=== PATIENT | female | born 1945 | race Caucasian/White ===

== ENCOUNTER 2020-05-05 08:56 | Outpatient (CLI) | payer MEDICARE, OTHER, SELFPAY ==
--- NOTE | 2020-05-05 09:05 | MM_ITS ---
WS: [id number] BILATERAL DIGITAL SCREENING MAMMOGRAPHY WITH CAD CLINICAL INFORMATION: SCREENING HISTORY: Screening mammogram. No current complaints. COMPARISON: April 09, 2019 TECHNIQUE: Bilateral CC and MLO views. FINDINGS: Scattered fibroglandular densities bilaterally. No suspicious focal mass, asymmetry, calcifications, or architectural distortion. No evidence of malignancy. Lucent centered and punctate calcifications. Secretory calcifications. Vascular calcification. MM/[id number] IMPRESSION: BI-RADS: 2-Benign FOLLOW UP: 1 Year Follow-up Recommend return to annual screening mammography.
== END 2020-05-05 08:57 | disposition home or self-care (01) ==
LOC: RADSHAW 09:03
PROVIDERS: PCP Family Medicine; Visit Provider Family Medicine
DX: Z12.31 Encounter for screening mammogram for malignant neoplasm of breast (principal)
CPT/HCPCS: 77067

== ENCOUNTER 2020-10-14 11:35 | Emergency (ER) | payer MEDICARE, OTHER, SELFPAY ==
[2020-10-14 11:40] VITALS: BP 154/76; PULSE 59; RESP 16; TEMP 36.8; O2SAT 96; BMI 27.4
--- NOTE | 2020-10-14 12:22 | ED_ITS ---
HPI - General Adult General: Chief complaint: General Medical Stated complaint: EAR PAIN Time Seen by Provider: 10/14/20 11:40 Source: patient Mode of arrival: ambulatory Limitations: no limitations History of Present Illness: HPI narrative: This patient is a 75-year-old female who presents with a sensation of her right ear plugged up as well as reduced hearing in that ear. She has had a history of cerumen impaction in the past. She has tried different lohl-gna-ajsbofl remedies but with no improvement so she is here for evaluation. Onset (ago): day(s) (2) Associated symptoms: Deny dyspnea, headache(s), nausea, rash, palpitations or vomiting Review of Systems General: Reports: 10 or more systems reviewed and unremarkable except in HPI and below Const: Denies: fever(s), chills or body aches Eyes: Denies: change in vision or blurry vision ENMT: Reports: change in hearing; Denies: throat pain, enlarged tonsils, odynophagia, hoarseness, mouth pain, swelling of lips/tongue, ear or mastoid pain or ear discharge Card: Denies: palpitations, irregular heart rhythm, edema or swelling of feet/ankles Resp: Denies: dyspnea, productive cough or non-productive cough GI: Denies: abdominal pain, nausea or vomiting : Denies: flank pain, difficulty voiding, dysuria, urinary frequency, urinary urgency or urinary hesitancy Musc: Denies: neck pain, back pain or extremity swelling Skin/Breast: Denies: rash, pruritus or erythema Neuro: Denies: headache(s), numbness in extremities or weakness in extremities Endo: Denies: polyuria, polydipsia or tired all the time Physical Exam Const: COMMON NORMALS: no acute distress, average body habitus and patient oriented x3 HENMT: COMMON NORMALS: normocephalic and atraumatic HEAD & SCALP: normocephalic and atraumatic EXTERNAL AUDITORY CANAL: Abnormal EAC present EAC laterality: right Details: cerumen impaction TYMPANIC MEMBRANE: TM normal on the left and TM abnormal TM laterality: right Details: obstructed by cerumen Resp: COMMON NORMALS: normal respiratory effort, No use of accessory muscles and clear to auscultation bilaterally AUSCULTATION: clear to auscultation bilaterally Cardio: COMMON NORMALS: regular rate, regular rhythm, S1 normal heart sound present, S2 normal heart sound present and No murmurs present (Cardio) RATE: regular rate RHYTHM: regular rhythm HEART SOUNDS: S1 normal heart sound present and S2 normal heart sound present Extremity: COMMON NORMALS: normal to inspection, full ROM and no pedal edema Neuro: COMMON NORMALS: patient oriented x3 Procedures Ear Wax Removal Right Ear: Cerumenolytic Used: other (warm tap water) Results: Re-examined: cerumen removed completely TM Examination: TM(s) intact, normal appearance Ear Canal Exam: atraumatic Patient Tolerated Procedure: well Complications: no problems Technique: ear canal irrigated Course Vital Signs: Vital signs: Vital Signs Temperature 98.2 F 10/14/20 11:40 Pulse Rate 59 L 10/14/20 11:40 Respiratory Rate 16 10/14/20 11:40 Blood Pressure 154/76 10/14/20 11:40 Pulse Oximetry 96 10/14/20 11:40 MDM - General Adult MDM Narrative: Medical decision making narrative: 75-year-old female with impacted cerumen in her right ear causing reduced hearing. Cerumen successfully removed via irrigation. She felt much improved after and had significantly improved hearing subjectively and she is discharged home. Discharge Plan Discharge Patient Disposition: Home Clinical Impression: Impacted cerumen, right ear Condition: Stable Discharge Orders: Discharge ED (Routine); Ordered 10/14/20 Ordered By: Dariusz Omer Referrals: Leonid Esparza MD [Primary Care Provider] - 1-3 days Discharge Diet: Usual diet Discharge Activity: Resume usual activity Patient Instructions: Cerumen Impaction (ED) Activity Restrictions/Additional Instructions: Return for any new or worsening symptoms. Follow-up with your primary care provider as needed. Continue home medications. Coding Level of Care Code ED Observer [employer] for Alexa Batres
== END 2020-10-14 12:28 | disposition home or self-care (01) ==
PROVIDERS: Emergency Provider Family Medicine; PCP Family Medicine
DX: H61.21 Impacted cerumen, right ear (principal)
CPT/HCPCS: 12345; 99281

== ENCOUNTER 2020-11-28 09:44 | Outpatient (CLI) | payer MEDICARE, OTHER, SELFPAY ==
[2020-11-28 11:17] LABS: Basophils # 0.1 10^3/uL (0.0-0.1); Basophils % 0.8 %; Eosinophils # 0.4 10^3/uL (0.0-0.8); Eosinophils % 3.7 %; Hematocrit 45.1 % (37.0-47.0); Hemoglobin 14.3 g/dL (11.5-15.3); Lymphocytes # 3.6 10^3/uL (0.8-4.8); Lymphocytes % 32.3 %; Mean Corpuscular HGB Conc 31.7 g/dL (30.0-36.0); Mean Corpuscular Hemoglobin 30.6 pg (28.0-34.0); Mean Corpuscular Volume 96.6 fL (81-99); Mean Platelet Volume 10.7 fL (7.4-10.4); Monocytes % 8.8 %; Neutrophils # 5.96 10^3/uL (1.8-7.7); Neutrophils % 53.5 %; Nucleated Red Blood Cells % 0 %; Platelet Count 383 10^3/cmm (130-400); Red Blood Count 4.67 10^6/uL (4.1-5.3); Red Cell Distribution Width 12.9 % (12.1-15.1); White Blood Count 11.1 10^3/uL (4.0-10.0)
[2020-11-28 11:33] LABS: Alanine Aminotransferase 34 U/L (0-33); Albumin Level 4.3 g/dL (3.5-5.2); Alkaline Phosphatase 77 IU/L (35-105); Anion Gap 13.5 (5-19); Aspartate Amino Transferase 22 U/L (0-32); Blood Urea Nitrogen 17 mg/dL (8-23); Calcium 9.5 mg/dL (8.5-10.5); Carbon Dioxide 28 mmol/L (22-29); Chloride 101 mmol/L (98-107); Globulin 2.8 g/dL (1.3-4.6); Glucose 87 mg/dL (65-115); Lactate Dehydrogenase 189 U/L (135-214); Osmolality Calculated 287 mOsm/kg (285-295); Potassium 4.5 mmol/L (3.5-5.1); Sodium 138 mmol/L (136-145); Total Bilirubin 0.3 mg/dL (0.15-1.2); Total Protein 7.1 g/dL (6.6-8.7)
[2020-11-28 12:38] LABS: Erythrocyte Sedimentation Rate 11 mm/hr (0-15)
--- NOTE | 2020-11-28 17:16 | ONC CON_ITS ---
Dr. Ayan George Patient Note Patient: Daniela Barragan Unit #: [id number]: [id number] Dicatated By: Mich Botello M.D.Date of Visit: Nov 28, 2020 Onc MED New Patient/Consult Referring Physician: Dr. Leonid Esparza M.D. Chief Complaint: Systemic mastocytosis. History of Present Illness: She has known history of systemic mastocytosis, initially diagnosed in 2007. She had presented with flushing episodes and she was found to have an elevated serum tryptase level. The diagnosis reportedly had been made by bone marrow biopsy. I had initially seen her in March 2009. Her repeat bone marrow aspiration/biopsy done here on 06/01/2009 showed normal cellularity with no evidence of an infiltrative process and with no significant increase in CD25 or CD117 positive cells by flow cytometry. The chromosome analysis also was normal. Her evaluation, though, did not include FISH or PCR studies. She did have normal 24-hour urine prostaglandin E2 excretion. She had subsequently continued symptomatic management under the direction of an thermite welder in [place]. She returns now for a follow-up visit. She has been feeling pretty good generally. She still has flushing episodes off and on all day, and she does have sweating associated with it. She has not had fever. Her energy has been pretty good. She has normal activity. Appetite also has been good, and her weight has been stable. She has no shortness of breath, cough, or chest pain. She has no GI or complaints. She has a little bit of arthritis in her hands. She also has some chronic back pain. She takes tramadol at bedtime as needed. She has a history of migraine headaches, though seem to have resolved. She does not complain of dizziness. She has a little bit of numbness/tingling in the anterior right thigh area. It is intermittent. She has no other focal neurologic symptoms. Past Medical History: Her medical history includes degenerative arthritis, gastroesophageal reflux disease, hyperlipidemia, hypertension, hypothyroidism, mastocytosis, and migraine headaches. She has a history of melanoma excision. Past Surgical History: Her surgical/procedural history includes cholecystectomy, hysterectomy with bilateral salpingo-oophorectomy, tonsillectomy, and excision of melanoma skin cancer in 2019. Medications: Aspirin 1 (81 mg) Tablet Oral daily, Cetirizine HCl 1 (10 mg) Tablet Oral daily, Cholecalciferol 1.5 (50 mcg ) Capsule Oral daily, Diclofenac Sodium 1 (50 mg) Tablet, enteric coated Oral b.i.d., Iron 1 (325 (65 fe) mg) Tablet Oral daily, Levothyroxine Sodium 1 (150 mcg) Tablet Oral every am, Meclizine HCl 1 (25 mg) Tablet Oral daily PRN, Metoprolol Tartrate 1 (25 mg) Tablet Oral b.i.d., Multiple Vitamin 1 Tablet Oral daily, Naproxen 1 (500 mg) Tablet Oral t.i.d., Omeprazole 1 (20 mg) Capsule Delayed Release Oral daily, Simvastatin 1 (20 mg) Tablet Oral daily, Singulair 1 (10 mg) Tablet Oral daily, traMADol HCl 1 (50 mg) Tablet Oral four times a day Allergies: Penicillins, Tetracycline HCl, and Zithromax. Social History: Ms. Barragan is . She is a non-smoker. She does not drink alcohol. Family History: Father of heart disease at age 65. Mother in a motor vehicle accident at age 62. A brother and a sister are in good health. Review Of Symptoms: Constitutional - This been feeling pretty good generally. She has good energy and she has normal activity. Appetite is good. Weight is stable. She has not had fever. She does have flushing episodes off and on all day. She has associated sweating. ECOG score is 0, Eyes - No change in vision, ENMT - No hearing loss or tinnitus. No sinus congestion/drainage. No mouth sores. No sore throat or difficulty swallowing, Hematologic/Lymphatic - No abnormal bruising or bleeding, Respiratory - No shortness of breath. No cough. No pleuritic pain or hemoptysis, Cardiovascular - No angina pain. No palpitations, Gastrointestinal - No nausea or vomiting. No heartburn or acid reflux. No diarrhea or constipation. No blood in the stool or black stools, Genitourinary (F) - No dysuria or hematuria. No urinary frequency. No urgency or incontinence, Musculoskeletal - She has a little bit of arthritis in her hands and she has some chronic back pain. She takes tramadol at bedtime as needed, Integumentary - She has followed with Dr. Okeefe for the melanoma, Neurologic - She has a history of migraine headaches, but those seem to have resolved. No dizziness. She has a little bit of numbness/tingling in the anterior right thigh area. It is intermittent. No other focal neurologic symptoms, Psychiatric - No anxiety or depression. No insomnia. Vital Signs: Performed on Nov 28, 2020 10:26: 0, 27.63, 1.87 sq.m, 66 in, 96 %, 58 /min (LOW), 18 /min, 142/66 mm(hg) (HIGH), 96.6 F (LOW), and 171.2 lbs (HIGH). Physical Examination: Constitutional - She looks good generally, Eyes - Sclerae nonicteric. Conjunctivae clear, ENMT - No lesions noted in the oral cavity, Neck - No mass or thyromegaly, Hematologic/Lymphatic - No cervical, clavicular, or axillary adenopathy, Respiratory - Lungs are clear with good air movement bilaterally, Cardiovascular - Heart rhythm is regular. There is no murmur, gallop, or rub noted, Abdomen - Soft and non-tender. Liver and spleen are not enlarged. There is no abdominal mass or ascites noted and there is no inguinal adenopathy, Back/Spine - No spine or CVA tenderness noted, Extremities - No edema. Dorsalis pedis pulses are palpable bilaterally, Integumentary - No suspicious skin lesions noted, Neurologic - No focal neurologic deficits noted. Problem List: 1. Patient with flushing episodes in association with elevated serum tryptase, previously diagnosed as systemic mastocytosis. 2. She has a history of melanoma excision, followed by Dr. Okeefe in [place]. 3. Hypertension. 4. Hyperlipidemia. 5. Hypothyroidism. 6. GERD. 7. Degenerative arthritis. 8. History of chronic migraine. Problems Addressed with this Encounter and Plan: Systemic mastocytosis. She had presented with flushing episodes in association with an elevated serum tryptase. An actual diagnosis of systemic mastocytosis was not able to be confirmed on repeat bone marrow aspiration/biopsy in May 2009. In reviewing the bone marrow report, it showed cellularity of 40 to 45% with no evidence of an infiltrative process. There was no increase in mast cells by CD 25 and CD117 markers. The chromosome analysis was normal. The evaluation did not include FISH or PCR studies. A 24-hour prostaglandin E2 excretion was 120 ng per 24 hours, normal range 125-600. Since her initial evaluation, she has continued symptomatic management and during that time her overall clinical status has remained stable. 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 At this point I will repeat her basic laboratory studies to include CBC, CMP, sed rate, LDH level, and tryptase level. Depending on the results, I may then consider further evaluation with a PCR study for the KIT D816 V mutation and a repeat bone marrow aspiration/biopsy. Signed By: Mich Botello M.D. <<Signature on File>>
== END 2020-11-28 09:45 | disposition home or self-care (01) ==
LOC: ONCMED 09:49
PROVIDERS: PCP Family Medicine; Visit Provider Internal Medicine Medical Oncology
DX: D47.02 Systemic mastocytosis (principal)
CPT/HCPCS: 80053; 83520; 83615; 85025; 85651; 99204

== ENCOUNTER 2021-07-12 08:56 | Outpatient (CLI) | payer MEDICARE, OTHER, SELFPAY ==
--- NOTE | 2021-07-12 09:02 | MM_ITS ---
WS: [id number] BILATERAL DIGITAL SCREENING MAMMOGRAPHY WITH CAD CLINICAL INFORMATION: SCREENING HISTORY: Screening mammogram. No current complaints. COMPARISON: May 05, 2020 TECHNIQUE: Bilateral CC and MLO views. FINDINGS: Scattered fibroglandular densities bilaterally. No suspicious focal mass, asymmetry, calcifications, or architectural distortion. No evidence of malignancy. Punctate and lucent centered calcifications. Vascular calcifications. MM/[id number] IMPRESSION: BI-RADS: 2-Benign FOLLOW UP: 1 Year Follow-up Recommend return to annual screening mammography.
== END 2021-07-12 08:57 | disposition home or self-care (01) ==
LOC: RADSHAW 09:00
PROVIDERS: PCP Family Medicine; Visit Provider Family Medicine
DX: Z12.31 Encounter for screening mammogram for malignant neoplasm of breast (principal)
CPT/HCPCS: 77067

== ENCOUNTER 2021-10-16 07:56 | Outpatient (CLI) | payer MEDICARE, OTHER, SELFPAY ==
--- NOTE | 2021-10-16 18:16 | ONC FU_ITS ---
Dr. Botello Patient Follow-Up Note Patient: Daniela Barragan Unit #: [id number]: 1945 Dicatated By: Mich Botello M.D.Date of Visit:Oct 16, 2021 Onc Med Follow-up/Prog Note Chief Complaint: Systemic mastocytosis. History of Present Illness: This is a 75-year-old woman who was diagnosed with mastocytosis in 2007. She had presented with flushing episodes and she was found to have an elevated serum tryptase level. The diagnosis reportedly had been made by bone marrow biopsy. I had initially seen her in March 2009. Her repeat bone marrow aspiration/biopsy done here on 06/01/2009 showed normal cellularity with no evidence of an infiltrative process and with no significant increase in CD25 or CD117 positive cells by flow cytometry. The chromosome analysis also was normal. Her evaluation, though, did not include FISH or PCR studies. She did have a normal 24-hour urine prostaglandin E2 excretion. She had subsequently continued symptomatic management under the direction of an wire setter in [place]. I had seen her for a follow-up visit again in November 2020. Her tryptase remained just mildly elevated at 31.2 mcg/L. On review of the NCCN guidelines, I felt that she more likely fit into the category of mast cell activation syndrome rather than systemic mastocytosis, as her findings did not appear to be indicative of a clonal disorder. In any case, she just continued with symptomatic management. Her other medical illnesses include hypertension, hyperlipidemia, hypothyroidism, GERD, and degenerative arthritis. She has a history of chronic migraine and she also has a history of having undergone excision of a melanoma in 2019. Her other surgeries include hysterectomy/bilateral salpingo-oophorectomy, cholecystectomy, and tonsillectomy. She is a non-smoker. She is seen for a follow-up visit. She has been feeling pretty good generally. She continues to have hot flashes and sweating. She also has itching, though not as consistently. She has been managing her symptoms with a combination of cetirizine, montelukast, and aspirin. She has pretty good energy, and she has normal activity. ECOG score is 0. Her appetite has been good. She has not had fever. She does not have sinus symptoms, sore throat, or difficulty swallowing. She does not complain of cough, and she has not been having shortness of breath or chest pain. She sometimes has heartburn and she sometimes has diarrhea. She has frequent urination. She has been having just mild joint pain. She does not complain of headache. She has occasional episodes of vertigo. She has no numbness/paresthesia or other focal neurologic symptoms. Medications: Aspirin 1 (81 mg) Tablet Oral daily, Cetirizine HCl 1 (10 mg) Tablet Oral daily, Cholecalciferol 1.5 (50 mcg ) Capsule Oral daily, Diclofenac Sodium 1 (50 mg) Tablet, enteric coated Oral b.i.d., Iron 1 (325 (65 fe) mg) Tablet Oral daily, Levothyroxine Sodium 1 (150 mcg) Tablet Oral every am, Meclizine HCl 1 (25 mg) Tablet Oral daily PRN, Metoprolol Tartrate 1 (25 mg) Tablet Oral b.i.d., Multiple Vitamin 1 Tablet Oral daily, Naproxen 1 (500 mg) Tablet Oral t.i.d., Omeprazole 1 (20 mg) Capsule Delayed Release Oral daily, Simvastatin 1 (20 mg) Tablet Oral daily, Singulair 1 (10 mg) Tablet Oral daily, traMADol HCl 1 (50 mg) Tablet Oral four times a day Allergies: Penicillins, Tetracycline HCl, and Zithromax. Vital Signs: Performed on Oct 16, 2021 08:18 Height - 66.00 in Weight - 171.6 lbs (LOW) BSA - 1.87 sq.m BMI - 27.70 Temperature - 97.0 F (LOW) Pulse - 67 /min Respiration - 18 /min BP - 148/70 mm(hg) (HIGH) O2 Sat - 94 % (LOW) Pain - 0 Fatigue - 0 Physical Examination: Constitutional - She looks good generally, Eyes - Sclerae nonicteric. Conjunctivae clear, ENMT - No lesions noted in the oral cavity, Hematologic/Lymphatic - No cervical, clavicular, or axillary adenopathy, Respiratory - Lungs sound clear with good air movement bilaterally, Cardiovascular - Heart rhythm is regular. There is no murmur, gallop, or rub noted, Abdomen - Soft. Liver and spleen are not enlarged. There is no abdominal mass or ascites noted and there is no inguinal adenopathy, Extremities - No edema, Integumentary - No suspicious skin lesions noted, Neurologic - No focal neurologic deficits noted. Lab/Imaging: Laboratory studies from 10/01/2021 included CBC showing hemoglobin 15.0 g, white blood cell count 10,900, and platelet count 369,000. Comprehensive metabolic profile showed normal renal function with BUN 18 and creatinine 0.8 mg/dL. Bilirubin and liver enzymes were normal. TSH was normal at 0.58 ???IU/mL. The tryptase level was mildly elevated and stable at 34.2 mcg/L, normal range less than 11.0. Problem List: 1. Mast cell disorder (systemic mastocytosis versus mast cell activation syndrome). 2. She has a history of melanoma excision, followed by Dr. Okeefe in [place]. 3. Hypertension. 4. Hyperlipidemia. 5. Hypothyroidism. 6. GERD. 7. Degenerative arthritis. 8. History of chronic migraine. Problems Addressed with this Encounter and Plan: Patient diagnosed with systemic mastocytosis in 2007. She had presented with flushing episodes in association with an elevated serum tryptase. An actual diagnosis of systemic mastocytosis was not able to be confirmed on repeat bone marrow aspiration/biopsy in May 2009. In reviewing the bone marrow report, it showed cellularity of 40 to 45% with no evidence of an infiltrative process. There was no increase in mast cells by CD 25 and CD117 markers. The chromosome analysis was normal. The evaluation did not include FISH or PCR studies. A 24-hour prostaglandin E2 excretion was 120 ng per 24 hours, normal range 125-600. Following her initial evaluation, she had continued symptomatic management. As of her follow-up visit in November 2020, her overall clinical status appeared stable. 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 She has since then continued symptomatic management with a combination of cetirizine, montelukast, and low-dose aspirin. There has been no significant change in the severity or frequency of her flushing spells, and there has been no other significant change in her clinical status. Her tryptase level remains just mildly elevated. She will continue with her same treatment, though I did suggest that she try taking the cetirizine in the morning and the montelukast at bedtime. She also will try increasing the aspirin to twice daily, and she is advised that she also can take Benadryl as needed. She will continue her regular follow-up with Dr. Esparza. I will see her again only as needed. Signed By: Mich Botello M.D. <<Signature on File>>
== END 2021-10-16 07:57 | disposition home or self-care (01) ==
PROVIDERS: PCP Family Medicine; Visit Provider Internal Medicine Medical Oncology
DX: D47.02 Systemic mastocytosis (principal); Z85.820 Personal history of malignant melanoma of skin; I10 Essential (primary) hypertension; E78.5 Hyperlipidemia, unspecified; E03.9 Hypothyroidism, unspecified; K21.9 Gastro-esophageal reflux disease without esophagitis; M19.90 Unspecified osteoarthritis, unspecified site; G43.909 Migraine, unspecified, not intractable, without status migrainosus; Z79.82 Long term (current) use of aspirin
CPT/HCPCS: 99214

== ENCOUNTER 2022-07-29 08:23 | Outpatient (CLI) | payer MEDICARE, SELFPAY ==
--- NOTE | 2022-07-29 08:30 | MM_ITS ---
WS: [id number] BILATERAL SCREENING DIGITAL TOMOSYNTHESIS MAMMOGRAM WITH CAD HISTORY: SCREENING COMPARISON: 07/12/2021, 05/05/2020 and 04/09/2019 Bilateral CC and MLO views with tomosynthesis and synthetic mammography submitted. Computer aided det ection analyzed. Breast composition: There are scattered areas of fibroglandular density. No suspicious masses, microc alcifications or architectural distortion. Mild increased asymmetries within the LEFT breast are stab le. Bilateral calcifications. Limited evaluation of the RIGHT breast. Very small amount of pectoralis muscle was included. MM/[place] [id number] IMPRESSION: BI-RADS: 2-Benign FOLLOW UP: 1 Year Follow-up
== END 2022-07-29 08:24 | disposition home or self-care (01) ==
LOC: RAD 08:24
PROVIDERS: PCP Family Medicine; Visit Provider Family Medicine
DX: Z12.31 Encounter for screening mammogram for malignant neoplasm of breast (principal)
CPT/HCPCS: 77063; 77067

== ENCOUNTER 2023-08-22 08:06 | Outpatient (CLI) | payer MEDICARE, SELFPAY ==
--- NOTE | 2023-08-22 08:14 | MM_ITS ---
WS: [id number] VIEWS: MLO and CC views both breasts. 3D digital tomosynthesis is also included in this exam. Comparison made with prior exam of 08/03/2010, 11/24/2012, 02/08/2014, 03/02/2015, 03/14/2016, 03/21/2017, , 04/09/2019, 05/05/2020, 07/12/2021, 07/29/2022.. Findings: There was no sign of mass, architectural distortion or suspicious calcification in either breast. The re are scattered areas of fibroglandular density Impression: MM/[place] [id number] BI-RADS: 2-Benign finding. FOLLOW-UP: 1 Year Follow-up This mammogram was also analyzed by the Computer Aided Detection System [employer].
== END 2023-08-22 08:07 | disposition home or self-care (01) ==
LOC: RAD 08:08
PROVIDERS: PCP Family Medicine; Visit Provider Family Medicine
DX: Z12.31 Encounter for screening mammogram for malignant neoplasm of breast (principal)
CPT/HCPCS: 77063; 77067

== ENCOUNTER 2024-09-08 08:17 | Outpatient (CLI) | payer MEDICARE, SELFPAY ==
--- NOTE | 2024-09-08 08:19 | MM_ITS ---
WS: [id number] Bilateral screening 3D tomosynthesis digital mammogram, 09/08/2024 8:31 AM Clinical Data: SCREENING Comparison: 08/22/2023, 07/29/2022, 07/12/2021, 05/05/2020, 04/09/2019, 03/27/2018, 03/21/2017, 03/14/2016, , 02/08/2014, 11/24/2012, 08/03/2010, 08/19/2006. Findings: No spiculated masses or clustered calcifications are seen. There are no secondary signs of carcinoma . There are scattered benign calcifications in both breasts. There is more fibroglandular tissue in t he left breast in the right breast. MM/MM [facility] tomosynthesis [id number] Impression: Negative bilateral mammogram unchanged. Recommend annual screening mammograms. BIRADS: 1 - Negative. FOLLOW UP: 1 Year Follow-up DENSITY: There are scattered areas of fibroglandular density. The CAD wrap checker was used
== END 2024-09-08 08:18 | disposition home or self-care (01) ==
LOC: RAD 08:18
PROVIDERS: PCP Family Medicine; Visit Provider Family Medicine
DX: Z12.31 Encounter for screening mammogram for malignant neoplasm of breast (principal)
CPT/HCPCS: 77063; 77067

== ENCOUNTER → 2024-12-01 12:51 | Outpatient (BNVA) | payer MEDICARE, SELFPAY | PROVIDERS: PCP Family Medicine; Visit Provider Student in an Organized Health Care Education/Training Program | DX: M19.011 Primary osteoarthritis, right shoulder (principal) | CPT/HCPCS: 99203 ==

== ENCOUNTER 2025-09-19 09:20 | Outpatient (CLI) | payer MEDICARE, SELFPAY ==
--- NOTE | 2025-09-19 09:29 | MM_ITS ---
WS: [id number] BILATERAL 3D TOMOSYNTHESIS DIGITAL SCREENING MAMMOGRAPHY WITH CAD CLINICAL INFORMATION: SCREENING HISTORY: Screening mammogram. No current complaints. COMPARISON: 2023 TECHNIQUE: Bilateral CC and MLO views. FINDINGS: Scattered fibroglandular densities bilaterally. No suspicious focal mass, asymmetry, calcifications, or architectural distortion. No evidence of malignancy. Punctate and lucent centered calcifications. Stable heterogeneous parenchymal tissue LEFT breast with nodularity and oil cysts. MM/MM scr tomosynthesis [id number] IMPRESSION: DENSITY: There are scattered areas of fibroglandular density. BI-RADS: 2 - Benign. FOLLOW UP: 1 Year Follow-up Recommend return to annual screening mammography.
== END 2025-09-19 09:21 | disposition home or self-care (01) ==
LOC: RAD 09:21
PROVIDERS: PCP Family Medicine; Visit Provider Family Medicine
DX: Z12.31 Encounter for screening mammogram for malignant neoplasm of breast (principal); R92.323 Mammographic fibroglandular density, bilateral breasts; R92.1 Mammographic calcification found on diagnostic imaging of breast; R92.8 Other abnormal and inconclusive findings on diagnostic imaging of breast; R92.333 Mammographic heterogeneous density, bilateral breasts
CPT/HCPCS: 77063; 77067